=== PATIENT | female | born 1975 | race Caucasian/White ===

== ENCOUNTER 2016-05-31 10:45 | Emergency (ER) | payer SELFPAY ==
[~2016-05-31] VITALS: Ht 167.6 cm; Wt 60.0 kg
[~2016-05-31 10:45] MED LIST: ALPR.25 PO; CLON1 PO; GABA300C3 PO; GABA600T PO; HYDR-3133 PO
[2016-05-31 10:51] VITALS: BP 113/66; PULSE 60; RESP 16; TEMP 98.6; O2SAT 96
[2016-05-31] MEDS ORDERED: GABA600T PO (11:17)
[2016-05-31] MEDS ORDERED: AZIT250T3 PO (11:34)
--- NOTE | 2016-05-31 11:34 | PD ---
HPI Chief Complaint: Musculoskeletal Complaint Time Seen by Provider: 11:28 Travel History International Travel<30 days: No Contact w/Intl Traveler<30days: No Traveled to known affect area: No History of Present Illness HPI Patient is a 40-year-old female who presents emergency evaluation of cough, nasal congestion, fatigue. Patient states her symptoms started 3 days ago. She denies any fevers, chills, nausea, vomiting, abdominal pain, chest pain or shortness of breath. Patient endorses a half pack per day smoking history, with no diagnosis of asthma in the past. She does endorse a history of rheumatoid arthritis. PFSH Past Medical History Arthritis: Yes (RA) Anxiety: Yes Diminished Hearing: No Herniated Disk: Yes (DDD) Musculoskeletal: Yes (Chronic back pain ) Immunizations Current: Yes Tetanus Vaccination: < 5 Years Influenza Vaccination: No ?: Not LMP: Now : 0 Past Surgical History Abdominal Surgery: Yes (Hernia) Social History Alcohol Use: No Tobacco Use: Yes (05/13 PPD) Substance Use: No Allergies-Medications (Allergen,Severity, Reaction): Coded Allergies: Penicillin (Verified Allergy, Intermediate, HIVES, 05/31/16) Compazine (Verified Adverse Reaction, Intermediate, ELEVATED HEART RATE, ) Reported Meds & Prescriptions Reported Meds & Active Scripts Active Reported Gabapentin 600 Mg Tab 600 Mg PO BID Review of Systems Except as stated in HPI: all other systems reviewed are Neg General / Constitutional: No: Fever, Chills HENT: Positive: Congestion, No: Sore Throat, Neck Pain, Earache Cardiovascular: No: Chest Pain or Discomfort Respiratory: Positive: Cough, No: Shortness of Breath, Wheezing Gastrointestinal: No: Nausea, Vomiting, Diarrhea, Abdominal Pain Genitourinary: No: Dysuria Musculoskeletal: No: Myalgias Physical Exam Narrative GENERAL: Well-nourished, well-developed patient. SKIN: Warm and dry. HEAD: Normocephalic. ENT: Mucosa pink and moist. No uvular edema. No uvular, palatal, or tonsillar deviation. Airway patent. Nasal turbinates appear normal without nasal blood, purulent drainage or septal hematoma. Posterior pharynx is cobblestone appearance, mild erythema noted, no exudates or tonsillar hypertrophy. EYES: No scleral icterus. No injection or drainage. NECK: Supple, trachea midline. No JVD or lymphadenopathy. CARDIOVASCULAR: Regular rate and rhythm without murmurs, gallops, or rubs. RESPIRATORY: Breath sounds equal bilaterally. No accessory muscle use. No wheezes, rhonchi, or rales noted. GASTROINTESTINAL: Abdomen soft, non-tender, nondistended. MUSCULOSKELETAL: No cyanosis, or edema. BACK: Nontender without obvious deformity. No CVA tenderness. Data Data Last Documented VS Vital Signs Date Time Temp Pulse Resp B/P Pulse Ox O2 Delivery O2 Flow Rate FiO2 05/31/16 11:15 16 05/31/16 10:51 98.6 60 113/66 96 [facility] Medical Decision Making Medical Screen Exam Complete: Yes Emergency Medical Condition: Yes Interpretation(s) Vital Signs Date Time Temp Pulse Resp B/P Pulse Ox O2 Delivery O2 Flow Rate FiO2 05/31/16 11:15 16 05/31/16 10:51 98.6 60 16 113/66 96 Differential Diagnosis Bronchitis versus pneumonia versus viral syndrome versus upper respiratory infection versus sinusitis versus other Narrative Course Patient is a 40-year-old female who presented to the emergency department for evaluation of cough and nasal congestion which is ongoing for the last 3 days. Other than the cobblestone appearance to her posterior pharynx are physical examination is unremarkable. Patient's vital signs are stable, her presentation is more consistent with a viral URI. Patient was encouraged to continue symptom management. She was encouraged to obtain [id number] Sudafed or similar nasal decongestant, Nasonex or Flonase, ibuprofen or acetaminophen for body aches or fevers. She was also encouraged to maintain adequate fluid intake. Patient thinks that she needs antibiotic, she was educated that this will not treat a viral illness and that she could expect a virus to last 5-7 days. She was advised that she will be provided with a prescription for antibiotics but was encouraged to wait to see if her symptoms improve on their own. Patient verbalized understanding of these instructions. She was further encouraged to return to emergency department for any new or worsening symptoms. Patient is stable for discharge. Diagnosis Primary Impression: Viral URI with cough Referrals: Primary Care Physician Patient Instructions: General Instructions, Upper Respiratory Infection (ED) Additional Instructions: Continue with symptomatic management Obtain [id number] Sudafed or similar nasal decongestant, Nasonex or Flonase, ibuprofen or acetaminophen for any aches or fevers. If you begin to take the antibiotic, complete full course as prescribed even if you begin to feel better Return to emergency department for any new or worsening symptoms Follow-up with her primary doctor Med/Other Pt SpecificInfo: Prescription(s) given Scripts Azithromycin 250 Mg [id number] Mg PO DIRECTED #6 TAB Ref 0 Take 2 tabs (500 mg) on day 1 then 1 tab daily x 4 days. Prov:Mary Fonseca 05/31/16 Disposition: 01 DISCHARGE HOME Condition: Stable Mary Fonseca May 31, 2016 11:34
== END 2016-05-31 11:59 | disposition home or self-care (01) ==
LOC: PHEFT 10:45
DX: J06.9 Acute upper respiratory infection, unspecified (principal); B34.9 Viral infection, unspecified; R05 Cough; R53.83 Other fatigue; G89.29 Other chronic pain; M06.9 Rheumatoid arthritis, unspecified; F17.210 Nicotine dependence, cigarettes, uncomplicated
CPT/HCPCS: 99283

== ENCOUNTER 2016-09-07 19:24 | Emergency (ER) | payer SELFPAY ==
[~2016-09-07] VITALS: Ht 167.6 cm; Wt 59.2 kg
[~2016-09-07 19:24] MED LIST changes: -ALPR.25 PO; +AZIT250T3 PO; -CLON1 PO; -GABA300C3 PO; -HYDR-3133 PO
[2016-09-07 19:25] VITALS: BP 112/61; PULSE 78; RESP 14; TEMP 98.2; O2SAT 99
[2016-09-07] MEDS ORDERED: TRAM50TA PO (19:36)
[2016-09-07] MEDS ORDERED: CLIN1CAP5 PO (19:36)
[2016-09-07] MEDS ORDERED: MAGICADU2 SWISH-SWAL (19:36)
[2016-09-07] MEDS ORDERED: IBUP800T23 PO (19:36)
--- NOTE | 2016-09-07 19:39 | PD ---
HPI Chief Complaint: Oral / Dental Pain or Problem Time Seen by Provider: 19:36 Travel History International Travel<30 days: No Contact w/Intl Traveler<30days: No Traveled to known affect area: No History of Present Illness HPI 41-year-old female that presents to the ED for evaluation of dental pain. Per patient she's had dental pain and swelling on her right upper jaw since today. Per patient she is in the process of getting dental work to get area of her teeth as she does have mild dentition. Per patient the pain is 8 out of 10. Per patient she is able to eat and drink. No injuries. She attests to have bad dentition. No fevers chills or sweats. No history of MRSA. Allergies to Compazine and penicillin. Patient does not radiate. PFSH Past Medical History Arthritis: Yes (RA) Anxiety: Yes Diminished Hearing: No Herniated Disk: Yes (DDD) Musculoskeletal: Yes (Chronic back pain ) Immunizations Current: Yes ?: Not LMP: 07/29/16 : 0 Past Surgical History Abdominal Surgery: Yes (Hernia) Social History Alcohol Use: No Tobacco Use: Yes (1/2 PPD) Substance Use: No Allergies-Medications (Allergen,Severity, Reaction): Coded Allergies: Penicillin (Verified Allergy, Intermediate, HIVES, 09/07/16) Compazine (Verified Adverse Reaction, Intermediate, ELEVATED HEART RATE, ) Reported Meds & Prescriptions Reported Meds & Active Scripts Active Azithromycin 250 Mg Tab 250 Mg PO DIRECTED Take 2 tabs (500 mg) on day 1 then 1 tab daily x 4 days. Reported Gabapentin 600 Mg Tab 600 Mg PO BID Review of Systems Except as stated in HPI: all other systems reviewed are Neg Physical Exam Narrative GENERAL: SKIN: Warm and dry. HEAD: Atraumatic. Normocephalic. EYES: Pupils equal and round. No scleral icterus. No injection or drainage. ENT: No nasal bleeding or discharge. Mucous membranes pink and moist. Tongue is midline. No uvula deviation. Patient has bad dentition throughout the mouth. Noted swelling on the gum on the right upper jaw but no sign of purulence or mass. Tender to touch on the tooth #6 and 5 which have cavities. NECK: Trachea midline. No JVD. CARDIOVASCULAR: Regular rate and rhythm. RESPIRATORY: No accessory muscle use. Clear to auscultation. Breath sounds equal bilaterally. GASTROINTESTINAL: Abdomen soft, non-tender, nondistended. Hepatic and splenic margins not palpable. MUSCULOSKELETAL: Extremities without clubbing, cyanosis, or edema. No obvious deformities. NEUROLOGICAL: Awake and alert. No obvious cranial nerve deficits. Motor grossly within normal limits. Five out of 5 muscle strength in the arms and legs. Normal speech. PSYCHIATRIC: Appropriate mood and affect; insight and judgment normal. Data Data Last Documented VS Vital Signs Date Time Temp Pulse Resp B/P Pulse Ox O2 Delivery O2 Flow Rate FiO2 09/07/16 19:25 98.2 78 14 112/61 99 MDM Medical Decision Making Medical Screen Exam Complete: Yes Emergency Medical Condition: Yes Medical Record Reviewed: Yes Differential Diagnosis Dentalgia versus abscess versus dental infection Narrative Course 41-year-old female that presents to the ED for evaluation of right upper dental pain. Patient was properly examined and was found to have signs and symptoms consistent with appears to be dental infection. At this time I will treat patient with clindamycin, tramadol, ibuprofen, Magic mouthwash. Told to follow up with PCP. Follow with dentist. See ED worsening symptoms. Given note for work. Diagnosis Primary Impression: Dental infection Patient Instructions: General Instructions Departure Forms: Tests/Procedures, Work Release Enter return to work date: September 09, 2016 Additional Instructions: Take medications as prescribed. Follow-up with PCP. See ED for any worsening symptoms. Do not drink or drive while taking pain medication. Apply ice or heat as needed for pain Med/Other Pt SpecificInfo: Prescription(s) given Scripts Clindamycin 150 Mg [id number] Mg PO Q6H 10 Days Prov:Stephen Muniz MD 09/07/16 Sussbqne-Nmndrenltubdmwn-Nmtjxfgzd Liq (Magic Mouthwash Adult Liq)120 Ml Susp5 Ml SWISH-SWAL ACHS #120 ML Each 5 mL contains: Nystatin 200,000 units, Diphenhydramine 4.25 mg, Viscous Lidocaine 10 mg, [place] syrup 0.8 mL Prov:Stephen Muniz MD 09/07/16 Ibuprofen 800 Mg [id number] Mg PO Q8H PRN (Pain/Inflammation) #30 TAB Prov:Stephen Muniz MD 09/07/16 Tramadol 50 Mg Tab50 Mg PO Q6H PRN (PAIN) #15 TAB Ref 0 Prov:Stephen Muniz MD 09/07/16 Disposition: 01 DISCHARGE HOME Condition: Stable Homero Bardales Sep 07, 2016 19:39
== END 2016-09-07 19:50 | disposition home or self-care (01) ==
LOC: PHEFT 19:24
DX: K04.7 Periapical abscess without sinus (principal); F17.200 Nicotine dependence, unspecified, uncomplicated
CPT/HCPCS: 99282

== ENCOUNTER 2016-11-03 14:36 | Emergency (ER) | payer SELFPAY ==
[~2016-11-03] VITALS: Ht 167.6 cm; Wt 59.6 kg
[~2016-11-03 14:36] MED LIST changes: +CLIN1CAP5 PO; +IBUP800T23 PO; +MAGICADU2 SWISH-SWAL; +TRAM50TA PO
[2016-11-03 14:40] VITALS: BP 96/54; PULSE 76; RESP 16; TEMP 98.3; O2SAT 98
[2016-11-03] MEDS ORDERED: PAXI10TA2 PO (14:51)
[2016-11-03] MEDS ORDERED: SODIUM CHLORIDE 0.9% FLUSH 10 ML FLUSH IVF PRN (15:15)
[2016-11-03] MEDS ORDERED: KETOROLAC TROMETHAMINE 60 MG/2 ML (IM) VIAL IM ONE (15:15)
[2016-11-03 15:26] LABS: AUTOMATED NEUTROPHIL # 2.8 TH/MM3 (1.8-7.7); BASOPHIL % 0.8 % (0.0-2.0); EOSINOPHIL # 0.3 TH/MM3 (0-0.4); EOSINOPHIL % 6.2 % (0.0-4.0); HEMATOCRIT 33.7 % (35.0-46.0); HEMO FLAGS DIFF FINAL; LYMPH % 24.8 % (9.0-44.0); LYMPHOCYTE # 1.2 TH/MM3 (1.0-4.8); MEAN CORPUSCULAR HEMOGLOBIN 29.2 PG (27.0-34.0); MEAN CORPUSCULAR HGB CONC 32.8 % (32.0-36.0); MONO % 13.3 % (0.0-8.0); NEUT % 54.9 % (16.0-70.0); PLATELET COUNT 198 TH/MM3 (150-450); RED BLOOD COUNT 3.78 MIL/MM3 (4.00-5.30); RED CELL DISTRIBUTION WIDTH 12.7 % (11.6-17.2)
[2016-11-03 15:41] LABS: CHLORIDE 105 MEQ/L (98-107); SODIUM (NA) 140 MEQ/L (136-145)
[2016-11-03 15:45] LABS: ANION GAP 7 MEQ/L (5-15); BICARBONATE 27.9 MEQ/L (21.0-32.0); BLOOD UREA NITROGEN 14 MG/DL (7-18)
[2016-11-03 15:48] LABS: ALT (GPT) 139 U/L (10-53); AST (GOT) 134 U/L (15-37); GLOMERULAR FILTRATION RATE 118 ML/MIN (>89)
[2016-11-03 15:50] LABS: TOTAL BILIRUBIN ADULT 0.5 MG/DL (0.2-1.0)
[2016-11-03 15:51] LABS: ALKALINE PHOSPHATASE 75 U/L (45-117)
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
[2016-11-03] MEDS ORDERED: TRAM50TA PO (16:18)
--- NOTE | 2016-11-03 16:36 | RADRPT ---
EXAM DATE/TIME: 11/03/2016 15:47 [facility] COMPARISON: No previous studies available for comparison. INDICATIONS : Bilateral leg swelling. MEDICAL HISTORY : PTSD. SURGICAL HISTORY : Hernia. ENCOUNTER: Initial ACUITY: 2 day PAIN SCORE: 7/10 LOCATION: Bilateral leg. TECHNIQUE: Venous ultrasound of the left and right leg was performed from the inguinal ligament to the proximal calf. Real-time, color Doppler and spectral tracing, compression and augmentation techniques were us ed. FINDINGS: RIGHT LEG: There is normal compressibility of the deep venous system from the inguinal region to the proximal ca lf. No echogenic clot is seen in the lumen of the common femoral, femoral, popliteal, and posterior tibial veins. There is a normal response of the venous system to proximal and distal augmentation an d respiration. There is a mildly prominent right groin lymph node measuring 2.6 x 1.0 x 1.6 cm. LEFT LEG: There is normal compressibility of the deep venous system from the inguinal region to the proximal ca lf. No echogenic clot is seen in the lumen of the common femoral, femoral, popliteal, and posterior tibial veins. There is a normal response of the venous system to proximal and distal augmentation an d respiration. CONCLUSION: There is no evidence of deep venous thrombosis within the lower extremities. Mildly prominent right g roin lymph node measuring 2.6 x 1.0 x 1.6 cm. Gilles Dahl MD on November 03, 2016 at 16:32 Board Certified Radiologist. This report was verified electronically.
== END 2016-11-03 16:26 | disposition home or self-care (01) ==
LOC: PHED 14:36
DX: R60.0 Localized edema (principal); S40.211A Abrasion of right shoulder, initial encounter; Y09 Assault by unspecified means; F17.210 Nicotine dependence, cigarettes, uncomplicated; M06.9 Rheumatoid arthritis, unspecified
CPT/HCPCS: 80053; 85025; 93970; 96372; 99285; J1885

== ENCOUNTER 2016-11-05 20:05 | Emergency (ER) | payer SELFPAY ==
[~2016-11-05 20:05] MED LIST changes: -AZIT250T3 PO; -CLIN1CAP5 PO; -GABA600T PO; -MAGICADU2 SWISH-SWAL; +PAXI10TA2 PO
[2016-11-05 20:25] VITALS: BP 122/74; PULSE 80; RESP 20; TEMP 98.2; O2SAT 98
[2016-11-05 21:20] LABS: AUTOMATED NEUTROPHIL # 2.9 TH/MM3 (1.8-7.7); BASOPHIL % 0.5 % (0.0-2.0); EOSINOPHIL # 0.2 TH/MM3 (0-0.4); EOSINOPHIL % 3.7 % (0.0-4.0); HEMATOCRIT 31.4 % (35.0-46.0); HEMO FLAGS DIFF FINAL; LYMPH % 28.2 % (9.0-44.0); LYMPHOCYTE # 1.5 TH/MM3 (1.0-4.8); MEAN CELL VOLUME 89.5 FL (80.0-100.0); MEAN CORPUSCULAR HGB CONC 32.3 % (32.0-36.0); MONO % 12.2 % (0.0-8.0); NEUT % 55.4 % (16.0-70.0); PLATELET COUNT 205 TH/MM3 (150-450); RED CELL DISTRIBUTION WIDTH 12.8 % (11.6-17.2); WHITE BLOOD COUNT 5.2 TH/MM3 (4.0-11.0)
[2016-11-05 21:35] LABS: POTASSIUM 3.9 MEQ/L (3.5-5.1)
[2016-11-05 21:38] LABS: BICARBONATE 28.1 MEQ/L (21.0-32.0); MAGNESIUM 2.2 MG/DL (1.5-2.5)
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
[2016-11-05 22:20] LABS: BLOOD, URINE NEG (NEG); GLUCOSE,URINE NEG (NEG); KETONE, URINE NEG (NEG); NITRITE,URINE NEG (NEG); PH, URINE 6.5 (5.0-8.5)
[2016-11-05 22:24] LABS: URINE COLOR YELLOW (YELLW/STRAW)
[2016-11-05 22:25] LABS: COMMENT (UR) CULT NOT INDICATED; CULTURE IF INDICATED CULT NOT INDICATED; SQUAMOUS EPITHELIAL CELL URINE > 8 /hpf (0-5)
[2016-11-05] MEDS ORDERED: KETOROLAC TROMETHAMINE 30 MG/ML (IVP) VIAL IV PUSH ONE (22:45)
[2016-11-05 22:57] LABS: BARBITURATES, URINE NEG (NEG)
[2016-11-05 22:58] LABS: AMPHETAMINE, URINE NEG (NEG)
[2016-11-05 23:02] LABS: COCAINE, URINE NEG (NEG)
[2016-11-05] MEDS ORDERED: MACR100C2 PO (23:06)
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
[2016-11-05] MEDS ORDERED: FUROSEMIDE 20 MG TAB PO ONE (23:15)
[2016-11-06 00:36] VITALS: BP 97/54
== END 2016-11-06 00:52 | disposition home or self-care (01) ==
LOC: PHED 20:05
DX: R60.0 Localized edema (principal); N39.0 Urinary tract infection, site not specified; F19.10 Other psychoactive substance abuse, uncomplicated; F41.9 Anxiety disorder, unspecified; G89.4 Chronic pain syndrome; M06.9 Rheumatoid arthritis, unspecified; F17.210 Nicotine dependence, cigarettes, uncomplicated; Z86.73 Personal history of transient ischemic attack (TIA), and cerebral infarction without residual deficits
CPT/HCPCS: 72040; 80048; 80307; 81001; 83735; 84703; 85025; 96374; 99284; J1885

== ENCOUNTER 2016-11-06 02:05 | Emergency (ER) | payer SELFPAY ==
[~2016-11-06] VITALS: Ht 170.2 cm; Wt 65.0 kg
[~2016-11-06 02:05] MED LIST changes: +MACR100C2 PO; -PAXI10TA2 PO
[2016-11-06 02:07] VITALS: BP 137/91; PULSE 80; RESP 16; TEMP 98.3; O2SAT 97
--- NOTE | 2016-11-06 02:40 | PD ---
HPI Chief Complaint: Psychiatric Symptoms Time Seen by Provider: 02:00 Travel History International Travel<30 days: No Contact w/Intl Traveler<30days: No Traveled to known affect area: No History of Present Illness HPI Patient is a 41-year-old male brought into emergency Department under Swartz act for making allegedly homicidal statements towards her girlfriend. Patient was at the [place] emergency department and was overheard talking to her girlfriend stating that she would come and get her money and if she didn't she would kill her. Patient denies any suicidal or homicidal ideations. She reports a history of anxiety and states she takes Valium for this. She states that she was not given this prescription at the emergency department. She reports that she is a recovering addict and was prescribed tramadol and this would not work for her she also reports being at [facility] emergency department today. She presented to both emergency Department complaining of swollen feet. PFSH Past Medical History Hx Anticoagulant Therapy: No Arthritis: Yes (RA) Anxiety: Yes Cerebrovascular Accident: Yes Diminished Hearing: No Herniated Disk: Yes (DDD) Musculoskeletal: Yes (BACK PAIN,RA) Immunizations Current: Yes Tetanus Vaccination: < 5 Years Influenza Vaccination: No ?: Not : 0 Past Surgical History Abdominal Surgery: Yes (HERNIA) Social History Alcohol Use: No Tobacco Use: Yes (1/2 PPD) Substance Use: No Allergies-Medications (Allergen,Severity, Reaction): Coded Allergies: Penicillin (Verified Allergy, Intermediate, HIVES, 11/06/16) Compazine (Verified Adverse Reaction, Intermediate, ELEVATED HEART RATE, ) Reported Meds & Prescriptions Reported Meds & Active Scripts Active Macrobid (Nitrofurantoin Monoh/Nitrofur Macro) 100 Mg Cap 100 Mg PO BID 7 Days Tramadol (Tramadol HCl) 50 Mg Tab 50 Mg PO Q6H PRN Ibuprofen 800 Mg Tab 800 Mg PO Q8H PRN Review of Systems Except as stated in HPI: all other systems reviewed are Neg Musculoskeletal: Positive: Edema Skin: Positive Change in Pigmentation Psychiatric: Positive: Anxiety Physical Exam Narrative GENERAL: Thin, well-developed, alert female. Appears anxious, no acute distress. SKIN: Focused skin assessment warm/dry. Sunburn to back upper extremities and lower legs area HEAD: Atraumatic. Normocephalic. EYES: Pupils equal and round. No scleral icterus. No injection or drainage. ENT: No nasal bleeding or discharge. Mucous membranes pink and moist. NECK: Trachea midline. No JVD. CARDIOVASCULAR: Regular rate and rhythm. No murmur appreciated. RESPIRATORY: No accessory muscle use. Clear to auscultation. Breath sounds equal bilaterally. GASTROINTESTINAL: Abdomen soft, non-tender, nondistended. Hepatic and splenic margins not palpable. MUSCULOSKELETAL: No obvious deformities. No clubbing. No cyanosis. 2+ pitting edema in bilateral lower extremities. Positive pedal pulses, brisk recent capillary refill. NEUROLOGICAL: Awake and alert. No obvious cranial nerve deficits. Motor grossly within normal limits. Normal speech. PSYCHIATRIC: Anxious mood and affect; insight and judgment normal. Data Data Last Documented VS Vital Signs Date Time Temp Pulse Resp B/P Pulse Ox O2 Delivery O2 Flow Rate FiO2 11/06/16 02:08 79 16 11/06/16 02:07 98.3 137/91 97 Orders B-Type Natriuretic Peptide (11/06/16 02:24) Psych Screen (11/06/16 02:24) Labs Laboratory Tests Test 11/06/16 02:30 B-Type Natriuretic Peptide 73 PG/ML MDM Medical Decision Making Medical Screen Exam Complete: Yes Emergency Medical Condition: Yes Medical Record Reviewed: Yes Interpretation(s) Vital Signs Date Time Temp Pulse Resp B/P Pulse Ox O2 Delivery O2 Flow Rate FiO2 11/06/16 02:08 79 16 11/06/16 02:07 98.3 80 16 137/91 97 Differential Diagnosis Mood disorder versus substance abuse versus anxiety versus homicidal ideations versus psychosis versus other Narrative Course Patient is a 41-year-old female currently under Swartz act for allegedly making homicidal statements. Patient had labs performed in [place] today, these were reviewed. CBC with a mild anemia with a hemoglobin of 10.1 and 34.1. Chemistry is unremarkable. Urinalysis is unremarkable, urine drug screen is positive for benzodiazepines and Marijuana. Patient's vital signs are stable. She does have significant peripheral edema, we'll check a BNP. She was given dose of oral Lasix in [place] this evening at midnight. BNP is unremarkable. Patient is medically clear for psychiatric evaluation. Diagnosis Primary Impression: Medical clearance for psychiatric admission Additional Impressions: Pedal edema Sunburn Condition: Stable Mary Fonseca Nov 06, 2016 02:40
[2016-11-06 06:04] VITALS: BP 131/62; PULSE 73; RESP 18; TEMP 98.4; O2SAT 100
[2016-11-06] MEDS ORDERED: IBUPROFEN 600 MG TAB PO ONE (09:45)
[2016-11-06 09:56] VITALS: BP 131/62; PULSE 73; RESP 18; O2SAT 100
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
== END 2016-11-06 11:24 | disposition home or self-care (01) ==
LOC: NEPD 02:05 → NEPJ 11:24
DX: R60.0 Localized edema (principal); L55.9 Sunburn, unspecified; F43.25 Adjustment disorder with mixed disturbance of emotions and conduct; F11.20 Opioid dependence, uncomplicated; F41.9 Anxiety disorder, unspecified; F17.210 Nicotine dependence, cigarettes, uncomplicated; F12.90 Cannabis use, unspecified, uncomplicated; F15.90 Other stimulant use, unspecified, uncomplicated; Z88.0 Allergy status to penicillin
CPT/HCPCS: 83880; 99284

== ENCOUNTER 2018-04-09 00:35 | Observation (INO) ==
[2018-04-09 01:26] LABS: Baso % (Auto) 0.6 % (0.0-2.0); Eos # (Auto) 0.2 th/mm3 (0.0-0.4); Eos % (Auto) 2.2 % (0.0-4.0); Hematocrit 41.7 % (35.0-46.0); Hemoglobin 14.3 gm/dL (11.6-15.3); Lymph % (Auto) 27.4 % (9.0-44.0); Mean Corpuscular HGB Conc 34.4 % (32.0-36.0); Mean Corpuscular Hemoglobin 32.2 pg (27.0-34.0); Mean Corpuscular Volume 93.6 fL (80.0-100.0); Mean Platelet Volume 8.8 fL (7.0-11.0); Mono # (Auto) 0.5 th/mm3 (0.0-0.9); Mono % (Auto) 6.4 % (0.0-8.0); Neut # (Auto) 4.5 th/mm3 (1.8-7.7); Neut % (Auto) 63.4 % (16.0-70.0); Platelet Count 240 th/mm3 (150-450); Red Blood Count 4.46 mil/mm3 (4.00-5.30); Red Cell Distribution Width 13.1 % (11.6-17.2); White Blood Count 7.1 th/mm3 (4.0-11.0)
[2018-04-09 01:35] LABS: Activated Partial Thrombo Time 26.1 sec (23.4-31.7); Prothrombin Time 9.9 sec (9.8-11.6)
[2018-04-09 01:46] LABS: Alanine Aminotransferase 83 U/L (10-53); Alkaline Phosphatase 60 U/L (45-117); Anion Gap 6 meq/L (5-15); Aspartate Aminotransferase 59 U/L (15-37); Blood Urea Nitrogen 17 mg/dL (7-18); Calcium 8.6 mg/dL (8.5-10.1); Carbon Dioxide 28.6 meq/L (21.0-32.0); Chloride 107 meq/L (98-107); Creatine Kinase 182 U/L (26-192); Glomerular Filtration Rate Greater Than 89 mL/min (>89); Glucose,Random 73 mg/dL (74-106); Sodium 142 meq/L (136-145); Total Protein 8.2 g/dL (6.4-8.2)
[2018-04-09 01:47] LABS: Potassium 4.1 meq/L (3.5-5.1)
--- NOTE | 2018-04-09 01:49 | XR ---
EXAM DATE: 04/09/2018 1:23 AM EST AGE/SEX: 42 years / Female INDICATIONS: Anxiety chest pain. CLINICAL DATA: This is the patient's initial encounter. Patient reports that signs and symptoms have been present for 1 day and indicates a pain score of 5/10. MEDICAL/SURGICAL HISTORY: . PTSD. None. COMPARISON: No prior exams available for comparison. FINDINGS: A single AP view of the chest demonstrates the lungs to be symmetrically aerated without evidence of mass, infiltrate or effusion. The cardiomediastinal contours are unremarkable. Osseous structures a re intact. CONCLUSION: No acute findings. Electronically signed by: Chi Waters MD 04/09/2018 1:48 AM EST
[2018-04-09 02:00] LABS: Creatine Kinase MB 3.4 ng/mL (0.5-3.6)
[2018-04-09] MEDS ORDERED: Ketorolac Inj 30 MG/ML (IVP) Vial IV.PUSH ONE ×2 (02:10→12:15)
[2018-04-09] MEDS ORDERED: clonazePAM 0.5 MG Tablet PO ONE (02:10)
[2018-04-09 03:48] VITALS: O2SAT 99
--- NOTE | 2018-04-09 03:51 | ED ---
HPI General Chief complaint: Chest Pain Stated complaint: chest pain Time Seen by Provider: 04/09/18 00:49 Source: patient Mode of arrival: EMS Limitations: no limitations History of Present Illness HPI narrative: Patient is a 42 year old female who comes in complaining of left sided chest pain. She says that the pain started a few hours ago. She has history of anxiety and panic attacks, but says this feels different. She says she is under a lot of stress lately because her mom recently and her father is ill. She denies nausea or vomiting. She denies cough or cold symptoms. Severity is moderate. Related Data Home Medications Medication Instructions Recorded Confirmed clonazepam [Klonopin] 2 mg PO BID 04/09/18 04/09/18 gabapentin 800 mg PO TID 04/09/18 04/09/18 Allergies Allergy/AdvReac Type Severity Reaction Status Date / Time penicillin G Allergy Intermediate HIVES Verified 04/09/18 00:45 prochlorperazine AdvReac Intermediate ELEVATED Verified 04/09/18 00:45 HEART RATE Review of Systems ROS: all other systems reviewed are negative Constitutional Denies chills and Denies fever(s) ENT Denies dizziness Cardiovascular Reports chest pain Respiratory Denies cough Gastrointestinal Denies nausea and Denies vomiting Musculoskeletal Denies myalgias and Denies arthralgias Integumentary/Breasts Denies sores and Denies wounds Neurologic Denies focal weakness and Denies numbness [facility] Medical History Medical History Anxiety (Acute) Rheumatoid arthritis (Acute) Surgical History Surgical History H/O hernia repair (Acute) Social History Social History Substance History: No History of Abuse Smoking Status: Current every day smoker Tobacco Type: Cigarettes How Often Do You Have a Drink Containing Alcohol: Never Immunization History Tetanus Immunization: >5 Years Exam Narrative Exam Narrative: GENERAL: Awake and alert, in no acute distress. SKIN: Focused skin assessment warm/dry. No wounds or signs of infection. HEAD: Atraumatic. Normocephalic. EYES: Pupils equal and round. No scleral icterus. No injection or drainage. ENT: No nasal bleeding or discharge. Mucous membranes pink and moist. NECK: Trachea midline. No JVD. CARDIOVASCULAR: Regular rate and rhythm. No murmur appreciated. RESPIRATORY: No accessory muscle use. Clear to auscultation. Breath sounds equal bilaterally. GASTROINTESTINAL: Abdomen soft, non-tender, nondistended. MUSCULOSKELETAL: No obvious deformities. No clubbing. No cyanosis. No edema. NEUROLOGICAL: Awake and alert. No obvious cranial nerve deficits. Motor grossly within normal limits. Normal speech. PSYCHIATRIC: Appropriate mood and affect; insight and judgment normal. Course Initial Documented Vital Signs Pulse Rate 63 04/09/18 00:41 Respiratory Rate 18 04/09/18 00:41 Pulse Oximetry 100 04/09/18 00:41 Last Documented Vital Signs Temperature 98.6 F 04/09/18 00:44 Pulse Rate 72 04/09/18 00:44 Respiratory Rate 18 04/09/18 00:44 Blood Pressure 124/77 04/09/18 00:44 Pulse Oximetry 100 04/09/18 00:44 Medical Decision Making [facility] Narrative Medical decision making narrative: Patient is a 42-year-old female who comes in complaining of left-sided chest pain. Exam shows no acute abnormalities. IV established, labs sent. Patient connected to the site monitor. Patient given her home Klonopin as well as a dose of Toradol. Her symptoms mildly improved. Given aspirin. Patient has been under a lot of stress lately. I feel she would benefit from an ACS rule out and she will be placed in the chest pain center. Chest x-ray shows no acute abnormalities. Medical Screen Exam Complete: Yes Emergency Medical Condition: Yes Differential Diagnosis Differential Diagnosis: Costochondritis versus ACS versus an NSTEMI versus STEMI versus pneumothorax versus pneumonia Medical Records Medical records reviewed: Yes I reviewed the patient's medical records. Lab Data Lab results reviewed: Yes I reviewed the patient's lab results. Result diagrams: 04/09/18 01:00 04/09/18 01:00 Lab Results 04/09/18 04/09/18 04/09/18 Range/Units 01:00 01:00 01:00 WBC 7.1 (4.0-11.0) th/mm3 RBC 4.46 (4.00-5.30) mil/mm3 Hgb 14.3 (11.6-15.3) gm/dL Hct 41.7 (35.0-46.0) % MCV 93.6 (80.0-100.0) fL MCH 32.2 (27.0-34.0) pg MCHC 34.4 (32.0-36.0) % RDW 13.1 (11.6-17.2) % Plt Count 240 (150-450) th/mm3 MPV 8.8 (7.0-11.0) fL Neut % (Auto) 63.4 (16.0-70.0) % Lymph % (Auto) 27.4 (9.0-44.0) % [place] % (Auto) 6.4 (0.0-8.0) % Eos % (Auto) 2.2 (0.0-4.0) % Baso % (Auto) 0.6 (0.0-2.0) % Neut # (Auto) 4.5 (1.8-7.7) th/mm3 Lymph # (Auto) 2.0 (1.0-4.8) th/mm3 [place] # (Auto) 0.5 (0.0-0.9) th/mm3 Eos # (Auto) 0.2 (0.0-0.4) th/mm3 Baso # (Auto) 0.0 (0.0-0.2) th/mm3 WBC Differential . Differential Comment Auto diff final PT 9.9 (9.8-11.6) sec INR 1.0 Ratio APTT 26.1 (23.4-31.7) sec Sodium 142 (136-145) meq/L Potassium 4.1 (3.5-5.1) meq/L Chloride 107 (98-107) meq/L Carbon Dioxide 28.6 (21.0-32.0) meq/L Anion Gap 6 (5-15) meq/L BUN 17 (7-18) mg/dL Creatinine 0.64 (0.50-1.00) mg/dL Estimated GFR Greater than 89 (>89) mL/min Random Glucose 73 L (74-106) mg/dL Calcium 8.6 (8.5-10.1) mg/dL Total Bilirubin 0.3 (0.2-1.0) mg/dL AST 59 H (15-37) U/L ALT 83 H (10-53) U/L Alkaline Phosphatase 60 (45-117) U/L Total Creatine Kinase 182 (26-192) U/L CK-MB (CK-2) 3.4 (0.5-3.6) ng/mL Troponin I Less than 0.02 L (0.02-0.05) ng/mL Total Protein 8.2 (6.4-8.2) g/dL Albumin 4.0 (3.4-5.0) g/dL Imaging Data Radiologist's impression: Chest X-Ray 04/09/18 01:11 CONCLUSION: No acute findings. ECG Data EKG Prior to Arrival: No Attestation: I personally reviewed and interpreted this ECG as follows: Interpretation: ECG shows NSR at a rate of 63, no ST elevation or depression. Discharge Plan Discharge Disposition Patient Disposition: 30 Still Patient Discharge Condition Condition: Stable Discharge Details Diagnosis: Atypical chest pain Physicians Team ED Provider: Fernanda Denney Primary Care Provider: Primary Care Milvia Neff Rxs /Orders / Referrals /Forms Prescriptions: No Action gabapentin 800 mg Tablet 800 mg PO TID RF: 0 clonazepam [Klonopin] 2 mg Tablet 2 mg PO BID RF: 0 Discharge Instructions Patient Printed Instructions: Chest Pain (ED) Discharge Interventions Interventions: Vital Signs Last Done: 04/09/18 03:45 Status ED Status: With Doctor
[2018-04-09 04:58] LABS: Creatine Kinase 139 U/L (26-192)
[2018-04-09] MEDS ORDERED: Acetaminophen 500 MG Tablet PO PRN (07:28)
[2018-04-09 08:18] LABS: Creatine Kinase 131 U/L (26-192)
--- NOTE | 2018-04-09 08:27 | P.HPCA ---
History of Present Illness Primary Care Physician: No Primary Care Physician Chief Complaint: Chest pain History of Present Illness: 42 year old female with history of anxiety, RA, and current smoker presents to ER for further evaluation of intermittent, nonexertional chest pain. Onset 2 days. Location left anterior chest. Characterized pressure. No radiation. No associated of nausea, vomiting, dyspnea, or diaphoresis. Duration approx. 45 minutes, gradually resolved, returning within an hour. This sequence occurring x2 days. Precipitating factors worrying, stress, and anxiety. Denies exertion as a precipitating factor. Relieving factors relaxing. No current chest pain. Endorses similar discomfort when "stressed." Does not currently have a PCP and reports being out of all her medications for 3 weeks. Endorses appointment scheduled April 24 to refill her medications. Increased situational stress, state mother recently and father is terminally ill from cancer. No recent illness, fever, or injury. Other than increased anxiety has been in her general state now. Past cardiac testing None Social history No known hypertension, hyperlipidemia, or diabetes. Current smoker 5-6 cigarettes daily, decreased from 1 pack/day. No alcohol or recreational drug use. Recently return to [place] from [place]. Walks long distances daily. Family history Noncontributory for early onset cardiovascular disease - Diagnosis (1) Atypical chest pain (2) Anxiety (3) Tobacco abuse Review of Systems All other systems reviewed negative except as stated in HPI PMFSH - History History Provided By: Patient - Medical History Medical History: Medical History (Last Reviewed 04/09/18 @ 11:00 by TIANA Gonzalez) Anxiety Rheumatoid arthritis - Surgical History Surgical History: Surgical History (Last Reviewed 04/09/18 @ 11:00 by TIANA Gonzalez) H/O hernia repair - Social History I have reviewed the patient's Social History: Yes - Tobacco History Second Hand Smoke Exposure: Yes Tobacco Use In Past 30 Days: Yes Smoking Status: Current every day smoker Tobacco Type: Cigarettes Packs Per Day: 0.25 (currently smoking 5-6 cigarettes, decreased to 1 pack/daily ) Years Smoked: 20 - Alcohol History How Often Do You Have a Drink Containing Alcohol: Never - Substance Use History Substance History: No History of Abuse - Travel History Recent Travel in the [place] Within the Last 8 Weeks: No Recent Travel Out of the Country Within the Last 8 Weeks: No - Immunization History Tetanus Immunization: >5 Years Medications and Allergies Active Medications: Active Medications Acetaminophen (Tylenol) 500 mg PO Q4H PRN PRN Reason: HEADACHE Ondansetron HCl (Zofran Inj) 4 mg IV.PUSH Q6H PRN PRN Reason: NAUSEA Sodium Chloride (Ns Flush) 2 ml IV.FLUSH BID KIKI Sodium Chloride (Ns Flush) 2 ml IV.FLUSH PRN PRN PRN Reason: FLUSH AFTER USING IV ACCESS Allergies Allergy/AdvReac Type Severity Reaction Status Date / Time penicillin G Allergy Intermediate HIVES Verified 04/09/18 00:45 prochlorperazine AdvReac Intermediate ELEVATED Verified 04/09/18 00:45 HEART RATE Home Medications Medication Instructions Recorded Confirmed Type clonazepam [Klonopin] 2 mg PO BID 04/09/18 04/09/18 History gabapentin 800 mg PO TID 04/09/18 04/09/18 History Exam Vital signs: Vital Signs 04/09/18 00:41 04/09/18 00:44 04/09/18 03:45 Temperature 98.6 F Pulse Rate 63 72 66 Respiratory Rate 18 18 16 Blood Pressure 124/77 95/48 L Pulse Oximetry 100 100 99 04/09/18 05:59 04/09/18 07:49 Temperature 97.8 F 98.2 F Pulse Rate 58 L 69 Respiratory Rate 16 16 Blood Pressure 91/55 L 96/56 L Pulse Oximetry 99 99 Intake & Output 04/08/18 04/09/18 04/09/18 18:59 06:59 18:59 Intake Total 0 / 0 Output Total 0 / 0 Balance 0 / 0 Weight 56.699 kg Intake: Oral 0 / 0 Output: Urine 0 / 0 Narrative: GENERAL: Alert WN, WD, NAD, pleasant, thin, female HEAD: NC, AT NECK: Supple, no masses, trachea midline CV: RRR, without murmur, rub, gallop, no JVD, S1-S2. Chest pain nontender with palpation. RESP: Clear lungs throughout bilateral, no crackles, wheeze, rhonchi, symmetrical chest rise, nonlabored, able to speak in full sentences ABD: Soft, NT, ND, no masses, positive bowel tones EXT: Pulses +2x4, no dependent edema MS: Normal tone x4 extremities, nontender, no obvious deformities, full range of motion NEURO: CN II through CN XII grossly intact, motor strength 5/5 PSYCH: A+O x3, pleasant affect, appropriate speech, mood, insight and judgment SKIN: Normal turgor, normal texture, no lesions, no rashes, brisk cap refill, even hair distribution, heavily tattooed. Results 04/09/18 01:00 04/09/18 01:00 Cardiac Enzymes 04/09/18 04/09/18 04/09/18 Range/Units 01:00 04:15 07:30 AST 59 H (15-37) U/L CK-MB (CK-2) 3.4 (0.5-3.6) ng/mL Troponin I Less than 0.02 L Less than 0.02 L Less than 0.02 L (0.02-0.05) ng/mL Coagulation 04/09/18 Range/Units 01:00 PT 9.9 (9.8-11.6) sec APTT 26.1 (23.4-31.7) sec CBC 04/09/18 Range/Units 01:00 WBC 7.1 (4.0-11.0) th/mm3 RBC 4.46 (4.00-5.30) mil/mm3 Hgb 14.3 (11.6-15.3) gm/dL Hct 41.7 (35.0-46.0) % Plt Count 240 (150-450) th/mm3 Neut # (Auto) 4.5 (1.8-7.7) th/mm3 Lymph # (Auto) 2.0 (1.0-4.8) th/mm3 [place] # (Auto) 0.5 (0.0-0.9) th/mm3 Eos # (Auto) 0.2 (0.0-0.4) th/mm3 Baso # (Auto) 0.0 (0.0-0.2) th/mm3 Comprehensive Metabolic Panel 04/09/18 Range/Units 01:00 Sodium 142 (136-145) meq/L Potassium 4.1 (3.5-5.1) meq/L Chloride 107 (98-107) meq/L Carbon Dioxide 28.6 (21.0-32.0) meq/L BUN 17 (7-18) mg/dL Creatinine 0.64 (0.50-1.00) mg/dL Calcium 8.6 (8.5-10.1) mg/dL AST 59 H (15-37) U/L ALT 83 H (10-53) U/L Alkaline Phosphatase 60 (45-117) U/L Total Protein 8.2 (6.4-8.2) g/dL Albumin 4.0 (3.4-5.0) g/dL Intake and Output 04/08/18 04/09/18 04/09/18 22:59 06:59 14:59 Intake Total 0 / 0 Output Total 0 / 0 Balance 0 / 0 Intake: Oral 0 / 0 Output: Urine 0 / 0 Other: Weight 56.699 kg - Imaging and Cardiology Imaging: Impressions Chest X-Ray 04/09/18 01:11 CONCLUSION: No acute findings. EKG interpretations - EKG EKG results cardiology: sinus rhythm, normal axis, normal QRS, normal ST/T Caprini VTE Risk Assessment Caprini VTE Risk Assessment: No/Low Risk (score <= 1) Caprini Risk Assessment Model: Point Value = 1 Point Value = 2 Point Value = 3 Point Value = 5 Age 41-60 Minor surgery BMI > 25 kg/m2 Swollen legs Varicose veins or History of unexplained or recurrent spontaneous Oral contraceptives or hormone replacement Sepsis (< 1 month) Serious lung disease, including pneumonia (< 1 month) Abnormal pulmonary function Acute myocardial infarction Congestive heart failure (< 1 month) History of inflammatory bowel disease Medical patient at bed rest Age 61-74 Arthroscopic surgery Major open surgery (> 45 min) Laparoscopic surgery (> 45 min) Malignancy Confined to bed (> 72 hours) Immobilizing plaster cast Central venous access Age >= 75 History of VTE Family history of VTE Factor V Leiden Prothrombin [id number] Lupus anticoagulant Anticardiolipin antibodies Elevated serum homocysteine Heparin-induced thrombocytopenia Other congenital or acquired thrombophilia Stroke (< 1 month) Elective arthroplasty Hip, pelvis, or leg fracture Acute spinal cord injury (< 1 month) Prophylaxis Regimen: Total Risk Factor Score Risk Level Prophylaxis Regimen 0-1 Low Early ambulation 2 Moderate Order ONE of the following: *Sequential Compression Device (SCD) *Heparin 5000 units SQ BID 3-4 Higher Order ONE of the following medications: *Heparin 5000 units SQ TID *Enoxaparin/Lovenox 40 mg SQ daily (WT < 150 kg, CrCl > 30 mL/min) *Enoxaparin/Lovenox 30 mg SQ daily (WT < 150 kg, CrCl > 10-29 mL/min) *Enoxaparin/Lovenox 30 mg SQ BID (WT < 150 kg, CrCl > 30 mL/min) AND/OR *Sequential Compression Device (SCD) 5 or more Highest Order ONE of the following medications: *Heparin 5000 units SQ TID (Preferred with Epidurals) *Enoxaparin/Lovenox 40 mg SQ daily (WT < 150 kg, CrCl > 30 mL/min) *Enoxaparin/Lovenox 30 mg SQ daily (WT < 150 kg, CrCl > 10-29 mL/min) *Enoxaparin/Lovenox 30 mg SQ BID (WT < 150 kg, CrCl > 30 mL/min) AND *Sequential Compression Device (SCD) Assessment and Plan - Assessment (1) Atypical chest pain Code(s): R07.89 - Other chest pain Status: Acute Plan: Admitted to chest pain center. Ruled out with 3 sets of EKGs and cardiac enzymes. Seen and evaluated by Dr. Fly Sotomayor. Chest discomfort atypical, likely related anxiety and being off anti anxiety medications x3 weeks. (2) Anxiety Code(s): F41.9 - Anxiety disorder, unspecified Status: Chronic Plan: Takes Klonopin 1mg BID, one dose now. Encouraged keeping follow up appointment as scheduled. (3) Tobacco abuse Code(s): Z72.0 - Tobacco use Status: Chronic Plan: Strongly encouraged and stressed the importance of tobacco cessation. Instructed to quit smoking. Information regarding Tobacco Free [place] will be provided upon discharge. H&P: Quality - VTE Deep Vein Thrombosis/Pulmonary Embolism Present on Admission: No
[2018-04-09] MEDS ORDERED: clonazePAM 1 MG Tablet PO ONE (11:30)
[2018-04-09 11:34] VITALS: BP 96/58; PULSE 75; RESP 18; TEMP 98.1
--- NOTE | 2018-04-09 14:22 | ECG ---
Date Performed: 04/09/2018 Time Performed: 07:29:21 PTAGE: 42 years EKG: SINUS BRADYCARDIA BORDERLINE ECG INTERPRETATION BASED ON A DEFAULT AGE OF 42 YEARS PREVIOUS TRACING : 04/09/2018 04.18 Since previous tracing, no significant change noted DOCTOR: Fly Sotomayor Interpretating Date/Time 04/09/2018 14:21:56
--- NOTE | 2018-04-09 14:23 | ECG ---
Date Performed: 04/09/2018 Time Performed: 04:18:32 PTAGE: 42 years EKG: Sinus rhythm NORMAL ECG PREVIOUS TRACING : 12/11/2014 06.29 Since previous tracing, no significant change noted DOCTOR: Fly Sotomayor Interpretating Date/Time 04/09/2018 14:22:16
--- NOTE | 2018-04-09 14:24 | ECG ---
Date Performed: 04/09/2018 Time Performed: 00:45:51 PTAGE: 42 years EKG: Sinus rhythm ABNORMAL ECG NO PREVIOUS TRACING DOCTOR: Fly Sotomayor Interpretating Date/Time 04/09/2018 14:22:46
--- NOTE | 2018-04-09 15:13 | TR ---
Date Performed: 04/09/2018 Time Performed: 10:22:10 DOCTOR: Fly Sotomayor DRUG LIST: CLINICAL HISTORY: CHEST PAIN REASON FOR TEST: REASON FOR ENDING: OBSERVATION: CONCLUSION: Juanjo protocol completed. Stopped sec to exceeding target heart rate and leg fatigue . Maximum RZ=912 Max HR Achieved=86.0% Maximum XP=115/62 Total Exercise Time=10:10. No reprod chest p ain. Upsloping st segments. No ectopy until recovery. During recovery bijeminy intermittent. Normal b p response. Great exercise tolerance. Recovery quick and unremarkable. COMMENTS: Patient exercised using the Juanjo protocol. No electrocardiographic changes were seen to suggest ischemia. Hemodynamic response to exercise was normal. No significant arrhythmia was prese nt.
== END 2018-04-09 14:38 | disposition home or self-care (01) ==
LOC: NEDA 00:35 → NEPE 00:35 → NEPGCP 05:30
PROVIDERS: ADMIT Internal Medicine Cardiovascular Disease; ATTEND Internal Medicine Cardiovascular Disease